=== PATIENT | male | born 1990 | race Caucasian/White ===

== ENCOUNTER 2017-03-11 16:50 | Inpatient (IN) | payer OTHER, MEDICAID ==
[~2017-03-11] VITALS: Ht 177.8 cm; Wt 81.7 kg
[~2017-03-11 16:50] MED LIST: CATAPRES0.1 MG PO; DEPL PO; FLUOXETINE20 MG/5 M1 PO; KEPPRA100 MG/M1 PO; LORAZEPAM INT2 MG/ML PO; RISPERIDONE PO
--- NOTE | 2017-03-11 17:42 | NUR ---
DR. CANTU AT BEDSIDE FOR MEDICAL EVAL
--- NOTE | 2017-03-11 17:48 | NUR ---
UPON ARRIVAL IN ED ONCE THE PT WAS TRANSFERED ONTO ED [facility] HE HAD AN APPROXIMATE 1 MINUTE TONIC CLONIC SEIZURE. ATIVAN 1 MG IVP WAS ADMINISTERED PER DR. KAY VERBAL ORDER. SEIZURES STOPPED.
--- NOTE | 2017-03-11 17:50 | NUR ---
PT BROUGHT IN VIA [facility] WITH THE COMPLAINT OF SEIZURE. PT'S HX: SEVERE AUSTISM AND SEIZURES. PER PTS MOTHER, THE PT NORMALLY HAS 1 SEIZURE EVERY MONTH. TODAY THE PT HAD APPROXIMATELY 15 SEIZURES. NO ORAL TRUAMA OR INCONTINENCE NOTED. SKIN WARM, DRY, AND INTACT. SEIZURE PRECAUTIONS IN PLACE. PT IS IN DIRECT OBSERVATION OF THE NURSES STATION AND IS BEING CLOSELY MONITORED . 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
--- NOTE | 2017-03-11 18:05 | NUR ---
PT PLACED ON BILATERAL SOFT WRIST RESTRAINTS DUE TO HIS RISK FOR INJURY BECAUSE THE PT IS ATTEMPTING TO PULL OFF CARDIAC LEADS, GET OUT OF BED AND AMBULATE. PT S MOTHER AT BEDSIDE BUT PT DOES NOT LISTEN TO DIRECTION FROM MOTHER OR ED STAFF. PT NOT BEING COMBATIVE. TWO FINGERS BREADTHS CAN FIT BETWEEN THE PTS SKIN AND THE SOFT WRIST RESTRAINT.
[2017-03-11 18:32] LABS: BASOPHIL % 0.1 % (0-2); PLATELET COUNT 204 x10^3mcL (130-400); RED CELL DISTRIBUTION WIDTH 14.1 % (11.5-14.5)
[2017-03-11 18:34] LABS: CALCIUM 7.9 mg/dL (8.5-10.1); CARBON DIOXIDE 26.3 mmol/L (21-32); CHLORIDE SERUM 111 mmol/L (98-107); CREATININE SERUM 1.1 mg/dL (0.7-1.3); GFR1 > 60 mL/min; GLUCOSE SERUM 83 mg/dL (74-106); POTASSIUM SERUM 3.8 mmol/L (3.5-5.1); SODIUM SERUM 146 mmol/L (136-145)
[2017-03-11 18:40] LABS: ALBUMIN 3.4 g/dL (3.4-5.0); ALKALINE PHOSPHATASE 62 U/L (46-116); ALT/SGPT 25 U/L (16-63); AST/SGOT 22 U/L (15-37); BILIRUBIN TOTAL 0.15 mg/dL (0.20-1.00); HDL CHOLESTEROL 58 mg/dL (40-60)
--- NOTE | 2017-03-11 18:40 | NUR ---
PORTABLE CHEST XRAY COMPLETED.
--- NOTE | 2017-03-11 18:40 | NUR ---
DR. CANTU EXAMINED THE PTS EAR AND FOUND A FOREIGN OBJECT IN THE LEFT EAR AND REMOVED IT WITH ALLIGATOR FORCEPS. IT WAS A SMALL ROCK
--- NOTE | 2017-03-11 18:49 | NUR ---
PTS MOTHER IS REQUESTING THAT WE DO NOT USE A CATHETER TO OBTAIN URINE AND WILL ATTEMPT TO HAVE THE PT USE A URINAL. DR. CANTU AWARE
[2017-03-11 18:53] LABS: CHOLESTEROL 133 mg/dL (<200)
--- NOTE | 2017-03-11 19:05 | NUR ---
RECEIVED REPORT FROM ABIDA GARCÍA.
[2017-03-11 19:22] LABS: UA SPECIFIC GRAVITY >=1.030 (1.005-1.035); microscopic required? YES; urine erythrocyte 1+ (NEGATIVE)
--- NOTE | 2017-03-11 19:38 | NUR ---
PT TAKEN TO CT [facility]IA [facility].
--- NOTE | 2017-03-11 19:54 | NUR ---
PT RETURNED FROM CT. PT MOTHER AT BEDSIDE. CALL LIGHT WITHIN REACH, WILL CONTINUE TO MONITOR.
--- NOTE | 2017-03-11 20:24 | NUR ---
ATTEMPTED TO CALL FOR REPORT. PER RN CHAPIS PRECEPTOR MICHEL, WILL CALL ED BACK IN 1 MINUTE.
--- NOTE | 2017-03-11 20:32 | NUR ---
REPORT GIVEN TO ABIDA NATION TO ASSUME CARE.
[2017-03-11 20:44] LABS: URIC ACID 16.5 mg/dL (3.5-7.2)
[2017-03-11 20:46] VITALS: BP 120/79
[2017-03-11 20:48] LABS: CHOLESTEROL/HDL RATIO 2.4
[2017-03-11 20:54] LABS: FREE T4 0.84 ng/dL (0.76-1.46); FREE THYROXINE INDEX 1.8 ug/dL (1.4-4.5)
--- NOTE | 2017-03-11 21:38 | NUR ---
IN PT'S ROOM. STATED NOT TO ADMINISTER PILLS FIRST. HE WILL CHANGE ORAL MEDICATIONS TO LIQUID FORM.
[2017-03-11 22:24] LABS: AMPHETAMINE QUAL UR NONE DETECTED (NEG <=1000)
--- NOTE | 2017-03-11 23:09 | NUR ---
PT ATTEMPTING TO PULL ON IV LINE AND GET OUT OF BED. UNABLE TO CONTRACT FOR SAFETY. OTHER ALTERNATIVES, SUCH REORIENTATION, MOTHER PRESENT, BATHROOM ROUNDS, ATTEMPTED BUT PT DANGER TO SELF. PLACED ON SOFT BILATERAL WRIST RESTRAINTS, SIGNED ORDER FOR SOFT BILATERAL WRIST RESTRAINTS.
--- NOTE | 2017-03-11 23:20 | NUR ---
LATE ENTRY: - RECEIVED FROM ER, TRANSPORTED VIA [facility]. PER ER REPORT, WAS ON SOFT BILATERAL WRIST RESTRAINTS DUE TO DANGER TO SELF. NO RESTRAINTS WHEN BROUGHT UP. PT AWAKE, NON VERBAL. ACCOMPANIED BY HIS MOTHER. HISTORY PROVIDED BY PT'S MOTHER. PER MOTHER, PT HAD MULTIPLE SEIZURE EPISODES TODAY. HX OF AUTISM AND SEIZURES. BREATHING EVEN AND UNLABORED ON ROOM AIR. LUNG SOUNDS CLEAR. O2 SAT 100%. SALINE LOCK TO LEFT AC, FLUSHED WELL.
--- NOTE | 2017-03-12 01:58 | NUR ---
CALM AT THIS TIME. MOTHER IN ROOM. PT BREATHING EVEN AND UNLABORED. HOB KEPT ELEVATED 30 DEG. IVF OF NS AT 50ML/HR.
--- NOTE | 2017-03-12 03:25 | NUR ---
IVF CHANGED FROM 50 ML/HR TO 85 ML/HR ORDERED. SEIZURE PRECAUTION, SIDE RAILS PADDED.
--- NOTE | 2017-03-12 06:19 | NUR ---
AWAKE. NON VERBAL. ASSISTED TO AMBULATE SEVERAL TIMES TO RESTROOM, GAIT STEADY. PT VOIDED SEVERAL TIMES. BREATHING EVEN AND UNLABORED ON ROOM AIR. SINUS RHYTHM ON TELE. HOB KEPT ELEVATED 30 DEG. ON SEIZURE PRECAUTIONS, SIDE RAILS KEPT PADDED. MOTHER IN ROOM ASLEEP. SITTER IN ROOM.
[2017-03-12 06:23] LABS: BASOPHIL % 0.3 % (0-2); PLATELET COUNT 194 x10^3mcL (130-400); RED CELL DISTRIBUTION WIDTH 14.1 % (11.5-14.5)
[2017-03-12 06:39] LABS: CALCIUM 7.8 mg/dL (8.5-10.1); CARBON DIOXIDE 25.2 mmol/L (21-32); CHLORIDE SERUM 107 mmol/L (98-107); GFR1 > 60 mL/min; GLUCOSE SERUM 103 mg/dL (74-106); MAGNESIUM 2.1 mg/dL (1.8-2.4); PHOSPHOROUS 3.3 mg/dL (2.5-4.9); POTASSIUM SERUM 3.2 mmol/L (3.5-5.1); SODIUM SERUM 144 mmol/L (136-145)
--- NOTE | 2017-03-12 07:12 | NUR ---
AWAKE, CALM, BREATHING EVEN AND UNLABORED. ENDORSED TO NURSE GARRICK
[2017-03-12 13:42] VITALS: BP 111/71
[2017-03-12 16:10] VITALS: BP 114/72
[2017-03-12 16:49] VITALS: BP 114/72
--- NOTE | 2017-03-12 18:45 | NUR ---
LATEST VITAL'S RELAYED TO [facility] OF [facility],ENDORSEMENT REPORT GIVEN TO NURSE ADELINE BUCHANAN OF [facility]. PT'S CONDITION STABLE AND NO EPISODE OF SZR ON THIS 12 HR SHIFT. FED OF HIS DINNER ALREADY. PACKET TO BE READY.
[2017-03-12] MEDS ORDERED: KEP500 PO (19:10)
[2017-03-12] MEDS ORDERED: VALLUD PO (19:10)
[2017-03-12] MEDS ORDERED: RIS1 PO (19:11)
[2017-03-12] MEDS ORDERED: PROZ20 PO (19:11)
[2017-03-12] MEDS ORDERED: ATI1 PO (19:12)
--- NOTE | 2017-03-12 19:29 | NUR ---
TRANSPORT HERE TO BRING PT TO [facility]. DR. DORANTES FINALIZING ORDERS. REPORT GIVEN TO [facility] PERSONNEL. LATEST VITAL SIGNS TAKEN TEMP 99.0, AR 96, O2 SAT 98%, BP 125/79, RR 18. AWAKE AND ALERT, STILL NON VERBAL. BREATHING EVEN AND UNLABORED ON ROOM AIR. ON SOFT BILATERAL WRIST RESTRAINTS. DANGER TO SELF. MOTHER AT BEDSIDE, TO GO WITH TRANSPORT.
--- NOTE | 2017-03-12 19:45 | NUR ---
TRANSFERRED TO [facility] VIA [facility]. TELEBOX RETURNED TO MONITOR STATION. MOTHER WITH PT ON TRANSFER.
[2017-03-13 10:35] LABS: T3 TOTAL 1.45 ng/mL
== END 2017-03-12 19:58 | disposition short-term general hospital (02) | DRG 100 ==
LOC: ED 16:50 → DU 19:57
PROVIDERS: Emergency Medicine; ADMIT Family Medicine
PROC: 09C1XZZ Extirpation of Matter from Left External Ear, External Approach (ICD-10-PCS; principal; 2017-03-11)
DX: G40.802 Other epilepsy, not intractable, without status epilepticus (principal); N17.0 Acute kidney failure with tubular necrosis; E87.0 Hyperosmolality and hypernatremia; F84.0 Autistic disorder; E87.2 Acidosis; E86.0 Dehydration; E87.6 Hypokalemia; E79.0 Hyperuricemia without signs of inflammatory arthritis and tophaceous disease; E83.51 Hypocalcemia; D64.9 Anemia, unspecified; Z68.25 Body mass index [BMI] 25.0-25.9, adult; E87.8 Other disorders of electrolyte and fluid balance, not elsewhere classified; T16.2XXA Foreign body in left ear, initial encounter; X58.XXXA Exposure to other specified factors, initial encounter; Y93.89 Activity, other specified; Y92.018 Other place in single-family (private) house as the place of occurrence of the external cause
CPT/HCPCS: 80307; 83880; 84439; G0480; J2060; J2405; J2543; J3490; J7030; J7040; Q0092